=== PATIENT | male | born 1960 | race Caucasian/White ===

== ENCOUNTER → 2017-06-11 | Outpatient (CLI) | payer BC ==
[2017-06-11 12:27] LABS: Basophils % (A) 1 %; Eosinophils # (A) 0.1 k/uL (0-0.7); Eosinophils % (A) 2 %; HCT 47.1 % (39.0-53.0); HGB 15.5 gm/dL (13.0-17.5); Lymphocytes # (A) 1.9 k/uL (1.0-4.8); Lymphocytes % (A) 32 %; MCH 31.5 pg (25.0-35.0); MCHC 32.9 g/dL (31.0-37.0); MCV 95.6 fL (80.0-100.0); Mean Platelet Volume 7.7; Monocytes # (A) 0.4 k/uL (0-1.0); Monocytes % (A) 6 %; Neutrophils # (A) 3.5 k/uL (1.3-7.7); Neutrophils % (A) 58 %; Platelet Count 180 k/uL (150-450); RBC 4.92 m/uL (4.30-5.90); RDW 12.9 % (11.5-15.5)
[2017-06-11 12:32] LABS: Potassium 4.8 mmol/L (3.5-5.1)
== END | disposition home or self-care (01) ==
LOC: LABPAT 11:43
PROVIDERS: ATTEND Orthopaedic Surgery
DX: Z01.818 Encounter for other preprocedural examination (principal); I10 Essential (primary) hypertension; M23.92 Unspecified internal derangement of left knee; Z01.812 Encounter for preprocedural laboratory examination
CPT/HCPCS: 36415; 80051; 85025; 93005

== ENCOUNTER 2017-07-02 07:56 | Day surgery (SDC) | payer BC ==
[2017-06-24 09:12] VITALS: BMI 34.7
--- NOTE | 2017-07-01 16:43 | HP ---
HISTORY AND PHYSICAL REASON FOR ADMISSION: Surgery 07/02/2017. HISTORY OF PRESENT ILLNESS: Jair Allen is a 57-year-old patient seen with progressive left knee pain. Treatment options were discussed. He elected to proceed with left knee arthroscopy. Consent was obtained. PAST MEDICAL HISTORY: Hypothyroidism, hypertension. PAST SURGICAL HISTORY: Left knee arthroscopy. MEDICATIONS: Bystolic, naproxen, Synthroid. ALLERGIES: None reported. SOCIAL HISTORY: Patient currently smokes 1 pack cigarettes daily. PHYSICAL EXAMINATION: Evaluation of left knee range of motion 0-120 degrees. Mild effusion. Tenderness medial joint line. Positive medial Ryan's, Julianna's, +1 with good endpoint. Collateral ligaments are stable. Distal neurovascular exam is intact. RADIOGRAPHS: Left knee radiographs revealed mild to moderate osteoarthritis. Left knee MRI revealed a complex medial meniscal tear and joint osteoarthritis. IMPRESSION: 1. Internal derangement, left knee with medial meniscal tear. 2. Hypertension. 3. Hypothyroidism. 4. Tobacco use. PLAN: Left knee arthroscopy with partial meniscectomy and debridement. MMODL / IJN: [id number] /
[~2017-07-02 07:56] MED LIST: DEXAMETHASONE SOD PHOSPHATE 10 MG/ML 1 ML VIAL IV ONE; HYDROmorphone 0.5 MG/0.5 ML SYRINGE IVP PRN; LACTATED RINGERS 1,000 ML IV SCH; ONDANSETRON 4 MG/2 ML VIAL IVP ONE; ceFAZolin IN SWFI 2 GM/20 ML SYRINGE IVP ONE
[2017-07-02] MEDS ORDERED: LIDOCAINE 1% 20 ML VIAL (10MG/ML) FOR IV START INTRADERMA ONE (08:40)
[2017-07-02] MEDS ORDERED: BUPIVACAINE (PF) 0.25% 30 ML VIAL SQ ONE ×3 (10:34→11:00)
[2017-07-02] MEDS ORDERED: LIDOCAINE 1% INJ 10MG/ML (20 ML MDV) ONE (10:37)
[2017-07-02] MEDS ORDERED: SUCCINYLCHOLINE CHLORIDE VIAL 200 MG/10 ML VIAL IV ONE (10:37)
[2017-07-02] MEDS ORDERED: MIDAZOLAM 2 MG/2 ML VIAL ONE (10:37)
[2017-07-02] MEDS ORDERED: PROPOFOL 10 MG/ML 20 ML VIAL IV ONE (10:37)
[2017-07-02] MEDS ORDERED: fentaNYL (PF) 50 MCG/ML 2 ML AMP ONE (10:37)
--- NOTE | 2017-07-02 11:31 | P.OP ---
Date of Procedure: 07/02/17 Preoperative Diagnosis: internal derangement left knee Postoperative Diagnosis: 1. Tear medial and lateral meniscus left knee 2. Grade 2 chondromalacia medial femoral condyle 3. 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 Reactive synovitis medial and suprapatellar compartments left knee Procedure(s) Performed: 1. Arthroscopic partial medial and lateral meniscectomy left knee 2. Arthroscopic chondroplasty medial femoral condyle left knee 3. Arthroscopic chondroplasty patellofemoral joint left knee 4. Arthroscopic partial synovectomy medial and suprapatellar compartments left knee Anesthesia: FAITHA, local Surgeon: Meño Hercules Estimated Blood Loss (ml): 8 Pathology: none sent Condition: stable Disposition: PACU Indications for Procedure: 57-year-old patient seen with progressive left knee pain. After having treatment options discussed, he elected proceed with arthroscopy. Operative Findings: see description of procedure Description of Procedure: Patient was taken to the operative suite. Patient underwent a general anesthetic by the department of anesthesia. Patient was given preoperative antibiotics. The left lower extremity was placed in a well-padded arthroscopic leg alegria. The left leg was prepped and draped in the normal sterile orthopedic fashion. A lateral parapatellar and suprapatellar incision was made. Trochars were inserted. Arthroscopy was initiated. Suprapatellar pouch revealed diffuse thick reactive synovitis. The patellofemoral joint appeared to articulate congruently. There was grade 3 chondromalacia of the patella and grade 4 chondromalacia of the femoral sulcus, both had osteochondral tears.. The scope was guided into the medial gutter. No loose bodies or plica was identified. The scope was then guided into the medial compartment. A medial parapatellar incision was made. Trocar inserted followed by probe. There were tears in the midbody and posterior horn medial meniscus. There areas of grade 2 chondromalacia medial femoral condyle with osteochondral tears present. There was some synovitis anteriorly. I performed a partial medial meniscectomy down to stable tissue. I performed a chondroplasty of the medial femoral condyle down to stable tissue. I performed a partial synovectomy. The residual meniscus and osteochondral surface were found to be stable. Scope and probe were then guided into the intercondylar notch. Cruciates were identified , probed and found to be stable. The scope and probe were then guided into lateral compartment. There was a radial tear mid body lateral meniscus. The lateral femoral condyle and tibial plateau were unremarkable. There was no synovitis. I performed a partial medial meniscectomy down to stable tissue. The residual meniscus was stable. The scope was in guided back into the suprapatellar compartment. I introduced a motorized shaver into the super patellar compartment. I debrided some piecemeal fragments of meniscus I encountered. I performed a chondroplasty of both patella and femoral sulcus down to stable tissue. I performed a partial synovectomy. The residual osteochondral surfaces appeared stable. Instruments were now removed from the joint. The joint was infiltrated with .25% Marcaine. Steri-Strips were applied to the portal sites. Sterile dressings were applied. The patient was placed into a ABELINO hose. No tourniquet was utilized. The patient was awakened, transferred to a bed and taken to recovery stable satisfactory condition.
[2017-07-02 11:38] VITALS: TEMP 96.7
[2017-07-02] MEDS ORDERED: HYDROcodone/APAP 7.5-325MG 1 EACH TAB PO ONE (12:26)
[2017-07-02 12:30] VITALS: RESP 18
[2017-07-02 12:40] VITALS: BP 114/77; PULSE 52
== END 2017-07-02 13:44 | disposition home or self-care (01) ==
LOC: OR 07:56
PROVIDERS: ATTEND Orthopaedic Surgery
DX: S83.242A Other tear of medial meniscus, current injury, left knee, initial encounter (principal); S83.282A Other tear of lateral meniscus, current injury, left knee, initial encounter; X58.XXXA Exposure to other specified factors, initial encounter; M22.42 Chondromalacia patellae, left knee; M65.862 Other synovitis and tenosynovitis, left lower leg; I10 Essential (primary) hypertension; E03.9 Hypothyroidism, unspecified; Z79.1 Long term (current) use of non-steroidal anti-inflammatories (NSAID); Z79.84 Long term (current) use of oral hypoglycemic drugs; F17.210 Nicotine dependence, cigarettes, uncomplicated; Z99.89 Dependence on other enabling machines and devices
CPT/HCPCS: 29880; J2250; J0330; J1100; J2405; J2001; J3010; J2704; J0690

== ENCOUNTER 2019-05-23 04:05 | Emergency (ER) | payer BC ==
[2019-05-23 04:14] VITALS: BP 141/85; PULSE 70; RESP 18; TEMP 98.1
[2019-05-23] MEDS ORDERED: KETOROLAC 30 MG/ML 1 ML VIAL IM STA (04:48)
[2019-05-23] MEDS ORDERED: DEXAMETHASONE SOD PHOSPHATE 10 MG/ML 1 ML VIAL IM STA (04:48)
--- NOTE | 2019-05-23 04:48 | ED ---
General Adult HPI - General Chief complaint: Extremity Injury, Upper Stated complaint: R Hand Swelling Source: patient Mode of arrival: ambulatory Limitations: no limitations - History of Present Illness Initial comments: Jair a 59-year-old gentleman with history of hypertension hyperlipidemia who presents the ER today for reevaluation of bilateral hand pain. Patient reports that around the skating time he got sick with what he thought was a viral illness he had nausea, cough, body aches and high fever. Patient reports that after the fever broke he began developing pain in his bilateral hands. Patient reports the pain is primarily in the left hand but occasionally in both and occasionally only in the right. Patient has been seen by a medical clinic in [place] where he was traveling, he's been seen by his primary care physician, he has had x-rays and blood work done and been told that there is possibility of developing rheumatoid arthritis however he is only been prescribed naproxen no steroids no other medications. Patient reports over the past day. The been bothering her for minimum sleeping tonight which woke him from the ER for further evaluation and possible referral to other specialists. - Related Data Home Medications Medication Instructions Recorded Confirmed Atorvastatin [Lipitor] 10 mg PO HS 06/24/17 07/02/17 Levothyroxine Sodium [Synthroid] 75 mcg PO DAILY 06/24/17 07/02/17 Nebivolol HCl [Bystolic] 10 mg PO DAILY 06/24/17 07/02/17 Previous Rx's Medication Instructions Recorded HYDROcodone/APAP 7.5-325MG [[place] 1 each PO Q6HR PRN #20 tab 07/02/17 7.5] predniSONE [Deltasone] 40 mg PO DAILY 5 Days #10 tablet 05/23/19 Allergies Allergy/AdvReac Type Severity Reaction Status Date / Time No Known Allergies Allergy Verified 05/23/19 04:13 Review of Systems ROS Statement: Those systems with pertinent positive or pertinent negative responses have been documented in the HPI. ROS Other: All systems not noted in ROS Statement are negative. Past Medical History Past Medical History: Hyperlipidemia, Hypertension, Thyroid Disorder History of Any Multi-Drug Resistant Organisms: None Reported Past Surgical History: Orthopedic Surgery Additional Past Surgical History / Comment(s): LT KNEE SCOPE. COLONOSCOPY, Past Anesthesia/Blood Transfusion Reactions: No Reported Reaction Past Psychological History: No Psychological Hx Reported Smoking Status: Current every day smoker Past Alcohol Use History: Occasional Past Drug Use History: None Reported - Past Family History Father Family Medical History: Cancer General Exam - General Exam Comments Initial Comments: Physical Exam GENERAL: Patient is well-developed and well-nourished. Patient is nontoxic and well-hydrated and is in no distress. HENT: Normocephalic, Atraumatic. EYES: PERRL, EOMI PULMONARY: Unlabored respirations. CARDIOVASCULAR: RRR Warm and well perfused extremities ABDOMEN: Non-distended SKIN: Mild erythema of bilateral hands : Deferred NEUROLOGIC: Alert and oriented Normal speech Normal gait MUSCULOSKELETAL: Bilateral hands held in flexed position, full passive ROM but reports pain Hands appear swollen and inflammed but not septic PSYCHIATRIC: No SI/HI Limitations: no limitations Course Vital Signs 05/23/19 04:10 Temperature 98.1 F Pulse Rate 70 Respiratory 18 Rate Blood Pressure 141/85 O2 Sat by Pulse 97 Oximetry Medical Decision Making - Medical Decision Making Patient was seen and evaluated, history is obtained from the patient history and physical exam are 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 Patient has been told is likely developed rheumatoid arthritis but is not on any medications. The joints do not appear septic though they are inflamed. At this time I'll treat with anti-inflammatories steroids and refer to outpatient follow-up with rheumatology. Disposition Clinical Impression: Polyarthralgia Disposition: HOME SELF-CARE Condition: Stable Instructions (If sedation given, give patient instructions): Arthralgia (ED) Prescriptions: predniSONE [Deltasone] 40 mg PO DAILY 5 Days #10 tablet Is patient prescribed a controlled substance at d/c from ED?: No Referrals: None,Stated [Primary Care Provider] - 1-[address]h Jr, DO [Doctor of Osteopathic Medicine] - 1-2 days Saravanan Camacho PAC [PHYSICIAN MEDICAL COLLECTIONS REPRESENTATIVE] - 1-2 days Sheila Gallegos MD [STAFF PHYSICIAN] - 1-2 days
== END 2019-05-23 05:06 | disposition home or self-care (01) ==
LOC: EC 04:05
DX: M25.542 Pain in joints of left hand (principal); M25.541 Pain in joints of right hand; M25.532 Pain in left wrist; M25.531 Pain in right wrist; M79.89 Other specified soft tissue disorders; L53.9 Erythematous condition, unspecified; E78.5 Hyperlipidemia, unspecified; I10 Essential (primary) hypertension; E07.9 Disorder of thyroid, unspecified; F17.200 Nicotine dependence, unspecified, uncomplicated; Z79.890 Hormone replacement therapy; Z79.899 Other long term (current) drug therapy
CPT/HCPCS: 99283; 96372 ×2; J1100; J1885

== ENCOUNTER 2020-07-03 17:51 | Emergency (ER) | payer BC ==
[2020-07-03] MEDS ORDERED: HYDROcodone/APAP 5-325MG 1 EACH TAB PO STA (18:22)
--- NOTE | 2020-07-03 18:53 | ED ---
Extremity Problem HPI - General Chief complaint: Extremity Problem,Nontraumatic Stated complaint: Right hand swelling, Pain Time Seen by Provider: 07/03/20 18:16 Source: patient, RN notes reviewed Mode of arrival: ambulatory Limitations: no limitations - History of Present Illness Initial comments: She is a 60-year-old male that comes emergency room complaining of right hand pain. He was recently diagnosed with rheumatoid arthritis. He does follow up with report manager and is taking Humira. But it does not seem to be working so he had a follow-up appointment with his report manager on the 2 weeks which medications. He noted that today he was wrenching try to fix his truck and noted that his right hand became painful and he couldn't squeeze it anymore. He hit the pain is 8 out of 10 continuous with no relief he has not tried any medication for the pain better. He stated that he just wants something to help with the pain so he can go to bed tonight and sleep. He denied any loss of sensation numbness tingling chest pain shortness of breath headache nausea vomiting diarrhea constipation fever fatigue chills. - Related Data Home Medications Medication Instructions Recorded Confirmed Atorvastatin [Lipitor] 10 mg PO HS 06/24/17 07/02/17 Levothyroxine Sodium [Synthroid] 75 mcg PO DAILY 06/24/17 07/02/17 Nebivolol HCl [Bystolic] 10 mg PO DAILY 06/24/17 07/02/17 Previous Rx's Medication Instructions Recorded HYDROcodone/APAP 7.5-325MG [[place] 1 each PO Q6HR PRN #20 tab 07/02/17 7.5] predniSONE [Deltasone] 40 mg PO DAILY 5 Days #10 tablet 05/23/19 Allergies Allergy/AdvReac Type Severity Reaction Status Date / Time No Known Allergies Allergy Verified 07/03/20 18:08 Review of Systems ROS Statement: Those systems with pertinent positive or pertinent negative responses have been documented in the HPI. ROS Other: All systems not noted in ROS Statement are negative. Past Medical History Past Medical History: Hyperlipidemia, Hypertension, Thyroid Disorder History of Any Multi-Drug Resistant Organisms: None Reported Past Surgical History: Orthopedic Surgery Additional Past Surgical History / Comment(s): LT KNEE SCOPE. COLONOSCOPY, Past Anesthesia/Blood Transfusion Reactions: No Reported Reaction Past Psychological History: No Psychological Hx Reported Smoking Status: Current every day smoker Past Alcohol Use History: Occasional Past Drug Use History: None Reported - Past Family History Father Family Medical History: Cancer General Exam Limitations: no limitations General appearance: alert, in no apparent distress Head exam: Present: atraumatic, normocephalic, normal inspection Eye exam: Present: normal appearance, PERRL, EOMI. Absent: scleral icterus, conjunctival injection, periorbital swelling ENT exam: Present: normal exam, mucous membranes moist Neck exam: Present: normal inspection. Absent: tenderness, meningismus, lymphadenopathy Respiratory exam: Present: normal lung sounds bilaterally. Absent: respiratory distress, wheezes, rales, rhonchi, stridor Cardiovascular Exam: Present: regular rate, normal rhythm, normal heart sounds. Absent: systolic murmur, diastolic murmur, rubs, gallop, clicks GI/Abdominal exam: Present: soft, normal bowel sounds. Absent: distended, tende rness, guarding, rebound, rigid Extremities exam: Present: normal inspection, full ROM, tenderness (Generalized over right hand), normal capillary refill. Absent: pedal edema, joint swelling, calf tenderness Neurological exam: Present: alert, oriented X3, CN II-XII intact Psychiatric exam: Present: normal affect, normal mood Skin exam: Present: warm, dry, intact, normal color. Absent: rash Course Vital Signs 07/03/20 07/03/20 18:03 19:07 Temperature 98.6 F Pulse Rate 65 Respiratory 18 18 Rate Blood Pressure 159/91 O2 Sat by Pulse 98 Oximetry Medical Decision Making - Medical Decision Making 6-year-old male complaining of right hand pain. Complete x-ray of right hand ordered: Mild to moderate osteoarthritis. Pain medication given. Case discussed with Dr. Kennedy, it was decided the patient discharged home with follow-up to report manager. - Radiology Data Radiology results: report reviewed, image reviewed No acute osseous abnormality, mild to moderate osteoarthritis. Disposition Clinical Impression: Rheumatoid arthritis flare Disposition: HOME SELF-CARE Condition: Stable Instructions (If sedation given, give patient instructions): Rheumatoid Arthritis (ED) Additional Instructions: Please return to the Emergency Department if symptoms worsen or any other concerns. Follow-up with report manager in 1-2 days Follow-up with primary care in 1-2 days. Take [id number] pain medication as needed for management. Avoid any strenuous activity that can cause flareups until follow-up appointment. Is patient prescribed a controlled substance at d/c from ED?: No Referrals: Toi Price MD [Primary Care Provider] - 1-2 days Time of Disposition: 19:24
--- NOTE | 2020-07-03 18:57 | XR ---
RESULT: HISTORY: Hand pain TECHNIQUE: 3 views of the right hand were obtained. COMPARISON: None. FINDINGS: There is no acute fracture or dislocation. There are mild to moderate degenerative changes of the int erphalangeal joints. IMPRESSION: No acute osseous abnormality. Mild to moderate osteoarthritis.
[2020-07-03] MEDS ORDERED: methylPREDNISolone SOD SUCCI 125 MG/2 ML VIAL IM ONE (19:16)
[2020-07-03 20:09] VITALS: BP 154/91; PULSE 63; RESP 20; TEMP 98
== END 2020-07-03 20:09 | disposition home or self-care (01) ==
LOC: EC 17:51
DX: M06.9 Rheumatoid arthritis, unspecified (principal); M19.041 Primary osteoarthritis, right hand; I10 Essential (primary) hypertension; E78.5 Hyperlipidemia, unspecified; E07.9 Disorder of thyroid, unspecified; F17.200 Nicotine dependence, unspecified, uncomplicated; Z79.899 Other long term (current) drug therapy; Z79.890 Hormone replacement therapy
CPT/HCPCS: 73130; 99283; 96372; J2930

== ENCOUNTER → 2020-10-26 | Outpatient (CLI) | payer BC ==
--- NOTE | 2020-10-27 05:03 | MR ---
EXAMINATION TYPE: MR foot RT wo con DATE OF EXAM: 10/26/2020 COMPARISON: HISTORY: Right foot and right ankle pain and swelling for 2 months. Right foot and ankle osteoarthrit is. Multiplanar multiecho imaging of the right foot was performed without contrast. Achilles tendon appears intact. Plantar fascia appears intact. There is 2 x 1 cm area of increased si gnal in the lateral aspect of the cuboidal bone consistent with a bone bruise on the T2 weighted imag es. There is mild subcutaneous edema over the lateral aspect of the midfoot. The medial and lateral flexor tendons of the foot appear intact. Extensor tendons appear intact. There is narrowing of the first MP joint space with spurring of the first metatarsal head and the bas e of the first proximal phalanx. There is no subluxation. There is no evidence of joint effusion. IMPRESSION: Cuboidal bone increased signal suggestive of a bone bruise. Mild subcutaneous edema. No fracture line seen. Hypertrophic osteoarthritis at the first MP joint.
== END | disposition home or self-care (01) ==
LOC: RADMRIMAIN 20:11
PROVIDERS: ATTEND Internal Medicine Rheumatology
DX: M19.071 Primary osteoarthritis, right ankle and foot (principal)

== ENCOUNTER → 2021-01-31 | Outpatient (CLI) | payer BC ==
--- NOTE | 2021-01-31 15:45 | XR ---
EXAMINATION TYPE: XR cervical spine 6 views comp, XR lumbosacral spine min 4V DATE OF EXAM: 01/31/2021 COMPARISON: None HISTORY: 60-year-old male M13.0 FINDINGS: Cervical spine: Moderate bony neuroforaminal narrowing on the right at C4-C5 and C5-C6. Mild bony neuroforaminal narr owing on the left at C4-C5. Scattered facet and uncovertebral joint arthropathy. Mild degenerative di sc disease lower cervical spine. Predental space widening or prevertebral soft tissue swelling. Prese rved alignment of the cervical spine. Normal odontoid view. Lumbar spine: 5 lumbar type vertebral bodies. Facet arthropathy lower lumbar spine. Moderate degenerative disc dise ase L5-S1 with disc space narrowing and endplate sclerosis. Mild degenerative disc disease L4-L5. Hamzah tebral body heights are preserved and alignment is maintained. IMPRESSION: 1. Cervical spine: Mild to moderate spondylotic change mid to lower cervical spine. No malalignment. Moderate bony neuroforaminal narrowing on the right at C4-C5 and C5-C6. 2. Lumbar spine: Moderate degenerative disc disease L5-S1. Facet arthropathy mid to lower lumbar spin e. No vertebral compression collapse or malalignment.
--- NOTE | 2021-01-31 15:48 | XR ---
EXAMINATION TYPE: XR pelvis AP view, XR knee complete 3 views bilateral DATE OF EXAM: 01/31/2021 COMPARISON: NONE HISTORY: 60-year-old male M1 3.0. FINDINGS: Pelvis: SI joints appear symmetric and intact as does the pubic symphysis. There is mild superolateral joint space narrowing at both hips. No marginal erosions. No acute fracture, subluxation, or dislocation. Knees: There are trace knee joint effusions on both sides. Mild degenerative spurring patellofemoral compart ments and also within the medial and lateral compartments of the left knee. At least mild joint space narrowing left medial compartment and at least mild joint space narrowing in the bilateral patellofe moral compartments. Extensor mechanisms are intact. Periarticular bone islands noted on the right. No acute fracture, subluxation, dislocation. IMPRESSION: 1. Pelvis: Mild degenerative joint space narrowing at the bilateral hips. 2. Knees: Trace knee joint effusions. Tricompartmental OA left knee with moderate joint space narrowi ng medial and patellofemoral compartments. Patellofemoral compartmental OA with joint space narrowing right knee.
== END | disposition home or self-care (01) ==
LOC: RADXRMAIN 10:06
PROVIDERS: ATTEND Nurse Practitioner Family
DX: M47.812 Spondylosis without myelopathy or radiculopathy, cervical region (principal); M99.71 Connective tissue and disc stenosis of intervertebral foramina of cervical region; M51.37 Other intervertebral disc degeneration, lumbosacral region; M47.816 Spondylosis without myelopathy or radiculopathy, lumbar region; M16.0 Bilateral primary osteoarthritis of hip; M17.0 Bilateral primary osteoarthritis of knee
CPT/HCPCS: 72050; 72110; 72170

== ENCOUNTER → 2022-05-12 | Outpatient (CLI) | payer BC ==
--- NOTE | 2022-05-12 15:28 | XR ---
EXAMINATION TYPE: XR chest 2V DATE OF EXAM: 05/12/2022 COMPARISON: NONE HISTORY: Cough. TECHNIQUE: Frontal and lateral views of the chest are obtained. FINDINGS: There is no suspicious focal air space opacity, pleural effusion, or pneumothorax seen. T he cardiac silhouette size is upper limits of normal. The osseous structures are intact. IMPRESSION: No acute pulmonary infiltrate.
== END | disposition home or self-care (01) ==
LOC: RADXRMAIN 15:02
PROVIDERS: ATTEND Internal Medicine
DX: R05.9 Cough, unspecified (principal)
CPT/HCPCS: 71046

== ENCOUNTER 2024-09-27 11:03 | Emergency (ER) | payer BC ==
[2024-09-27 11:06] VITALS: TEMP 97.9
--- NOTE | 2024-09-27 11:13 | ED ---
Wound/Laceration HPI - General Chief Complaint: Wound/Laceration Stated Complaint: L hand lac Time Seen by Provider: 09/27/24 11:07 Source: patient, RN notes reviewed Mode of arrival: ambulatory Limitations: no limitations - History of Present Illness Initial Comments: 64-year-old male presenting to emergency department for complaint of a laceration to his left palm that occurred 20 minutes prior to arrival. Patient states that he was using a razor blade to remove carpet when he accidentally cut his palm. He is not remember when his last tetanus vaccination was. Denies paresthesias loss range of motion of the hand. No other acute complaints at this time. - Related Data Home Medications Medication Instructions Recorded Confirmed Atorvastatin [Lipitor] 10 mg PO HS 06/24/17 07/02/17 Levothyroxine Sodium [Synthroid] 75 mcg PO DAILY 06/24/17 07/02/17 Nebivolol HCl [Bystolic] 10 mg PO DAILY 06/24/17 07/02/17 Previous Rx's Medication Instructions Recorded HYDROcodone/APAP 7.5-325MG [[place] 1 each PO Q6HR PRN #20 tab 07/02/17 7.5] predniSONE [Deltasone] 40 mg PO DAILY 5 Days #10 tablet 05/23/19 Allergies Allergy/AdvReac Type Severity Reaction Status Date / Time No Known Allergies Allergy Verified 09/27/24 11:06 Review of Systems ROS Statement: Those systems with pertinent positive or pertinent negative responses have been documented in the HPI. ROS Other: All systems not noted in ROS Statement are negative. Past Medical History Past Medical History: Hyperlipidemia, Hypertension, Thyroid Disorder History of Any Multi-Drug Resistant Organisms: None Reported Past Surgical History: Orthopedic Surgery Additional Past Surgical History / Comment(s): LT KNEE SCOPE. COLONOSCOPY, Past Anesthesia/Blood Transfusion Reactions: No Reported Reaction Past Psychological History: No Psychological Hx Reported Smoking Status: Current every day smoker Past Alcohol Use History: Occasional Past Drug Use History: None Reported - Past Family History Father Family Medical History: Cancer General Exam Limitations: no limitations General appearance: alert, in no apparent distress ENT exam: Present: normal exam, mucous membranes moist Neck exam: Present: normal inspection. Absent: tenderness, meningismus, lymphadenopathy Respiratory exam: Present: normal lung sounds bilaterally. Absent: respiratory distress, wheezes, rales, rhonchi, stridor Cardiovascular Exam: Present: regular rate, normal rhythm, normal heart sounds. Absent: systolic murmur, diastolic murmur, rubs, gallop, clicks GI/Abdominal exam: Present: soft, normal bowel sounds. Absent: distended, tenderness, guarding, rebound, rigid Left Hand Wrist exam: Present: laceration (anterior lateral laceration over thenar eminence measuring 5.5 inches) Neuro motor exam: Present: wrist extension intact, thumb opposition intact Vascular: Present: normal capillary refill, radial pulse (2+). Absent: vascular compromise Back exam: Present: normal inspection Skin exam: Present: warm, dry, intact, normal color. Absent: rash Course Vital Signs 09/27/24 11:03 Temperature 97.9 F Pulse Rate 57 L Respiratory 16 Rate Blood Pressure 211/86 O2 Sat by Pulse 99 Oximetry Procedures - Laceration Laceration #1 Consent Obtained: verbal consent Indication: laceration Site: hand Size (cm): 13 Description: linear Depth: simple, single layer Anesthetic Used: lidocaine 1% Anesthesia Technique: local infiltration Amount (mls): 6 Pre-repair: wound explored, irrigated extensively, deep structures intact Type of Sutures: nylon Size of Sutures: 4-0 Number of Sutures: 11 Technique: simple, interrupted Patient Tolerated Procedure: well, no complications Medical Decision Making - Medical Decision Making Was pt. sent in by a medical professional or institution (DANIA Sanchez, GEAR MACHINE OPERATOR, urgent care, hospital, or senior living...) When possible be specific @ -No Did you speak to anyone other than the patient for history (EMS, parent, family, police, friend...)? What history was obtained from this source @ -No Did you review nursing and triage notes (agree or disagree)? Why? @ -I reviewed and agree with nursing and triage notes Were old charts reviewed (outside hosp., previous admission, EMS record, old EKG, old radiological studies, urgent care reports/EKG's, senior living records)? Report findings @ -No old charts were reviewed Differential Diagnosis (chest pain, altered mental status, abdominal pain women, abdominal pain men, vaginal bleeding, weakness, fever, dyspnea, syncope, headache, dizziness, GI bleed, back pain, seizure, CVA, palpatations, mental health, musculoskeletal)? @ -Laceration, tendon involvement, arterial injury, this list is not all inclusive EKG interpreted by me (3pts min.). @ -None X-rays interpreted by me (1pt min.). @ -None done CT interpreted by me (1pt min.). @ -None done U/S interpreted by me (1pt. min.). @ -None done What testing was considered but not performed or refused? (CT, X-rays, U/S, labs)? Why? @ -None What meds were considered but not given or refused? Why? @ -None Did you discuss the management of the patient with other professionals (professionals i.e. , PA, GEAR MACHINE OPERATOR, lab, RT, psych nurse, social psychologist, photo graphics librarian, teacher, child support case officer, telephonic nurse case manager)? Give summary @ -No Was smoking cessation discussed for >3mins.? @ -No Was critical care preformed (if so, how long)? @ -No Were there social determinants of health that impacted care today? How? (Homelessness, low income, unemployed, alcoholism, drug addiction, transportation, low edu. Level, literacy, decrease access to med. care, nursing home, rehab)? @ -No Was there de-escalation of care discussed even if they declined (Discuss DNR or withdrawal of care, Hospice)? DNR status @ -No What co-morbidities impacted this encounter? (DM, HTN, Smoking, COPD, CAD, Cancer, CVA, ARF, Chemo, Hep., AIDS, mental health diagnosis, sleep apnea, morbid obesity)? @ -None Was patient admitted / discharged? Hospital course, mention meds given and route, prescriptions, significant lab abnormalities, going to OR and other pertinent info. @ -Discharge. 64-year-old male presenting to emergency department with laceration to the left anterior thenar eminence. Radial pulse 2+. Neurovascularly intact with no paresthesias. Area was cleansed with sterile water and Betadine solution. Anesthetized with local infiltration of lidocaine. 11 simple interrupted sutures were placed with 4-0 nylon. Recommend follow-up with primary care provider or return to the emergency department in 7 to 12 days for suture removal. Wound care/suture care discussed at bedside. Case discussed with Dr. Guerrero Undiagnosed new problem with uncertain prognosis? @ -No Drug Therapy requiring intensive monitoring for toxicity (Heparin, Nitro, Insulin, Cardizem)? @ -No Were any procedures done? @ -laceration repair with sutures- see procedure note Diagnosis/symptom? @ -laceration Acute, or Chronic, or Acute on Chronic? @ -acute Uncomplicated (without systemic symptoms) or Complicated (systemic symptoms)? @ -uncomplicated Side effects of treatment? @ -No Exacerbation, Progression, or Severe Exacerbation? @ -No Poses a threat to life or bodily function? How? (Chest pain, [place], [place], pneumonia, PE, COPD, DKA, ARF, appy, cholecystitis, CVA, Diverticulitis, Homicidal, Suicidal, threat to staff... and all critical care pts) @ -No Disposition Clinical Impression: Laceration Disposition: HOME SELF-CARE Condition: Good Instructions (If sedation given, give patient instructions): Care For Your Stitches (DC), Laceration (ED) Additional Instructions: Please return to the Emergency Department if symptoms worsen or any other concerns. Return back to the emergency department or to your primary care provider in 7 to 12 days for suture removal. Is patient prescribed a controlled substance at d/c from ED?: No Referrals: Toi Price MD [Primary Care Provider] - 1-2 days Time of Disposition: 12:14
[2024-09-27] MEDS: LIDOCAINE 1% INJ 10MG/ML (20 ML MDV) SQ ONE (11:22)
[2024-09-27] MEDS: DIPH,PERTUS(ACELL)TETVAC-LF 0.5 ML VIAL IM ONE (11:29)
[2024-09-27 12:55] VITALS: BP 164/90; PULSE 59; RESP 18
== END 2024-09-27 12:54 | disposition home or self-care (01) ==
LOC: EC 11:03
DX: S61.412A Laceration without foreign body of left hand, initial encounter (principal); F17.200 Nicotine dependence, unspecified, uncomplicated; Z23 Encounter for immunization; W26.8XXA Contact with other sharp object(s), not elsewhere classified, initial encounter
CPT/HCPCS: 90715; 99282; 90471; 12005; J2003